=== PATIENT | female | born 1985 | race Two or more races ===

== ENCOUNTER 2023-07-09 06:47 | Emergency (ER) | payer OTHER ==
[~2023-07-09] VITALS: Ht 167.6 cm; Wt 130.0 kg
[~2023-07-09 06:47] MED LIST: ALBU8HFA4 IH; BECL8.7A5 IH
[2023-07-09 06:51] VITALS: TEMP 98.8
[2023-07-09] MEDS ORDERED: IPRATROPIUM BROMIDE 0.5 MG/2.5 ML NEB SOLUTION NEB ONE (07:00)
[2023-07-09] MEDS ORDERED: ALBUTEROL SULFATE 2.5 MG/0.5 ML NEB SOLUTION NEB ONE (07:00)
[2023-07-09 07:25] LABS: COVID AG,FIA SOURCE NASAL SWAB
[2023-07-09 07:29] VITALS: PULSE 97; RESP 20; O2SAT 93
[2023-07-09 07:44] VITALS: PULSE 98; RESP 20; O2SAT 95
[2023-07-09 08:01] LABS: SARS-COV2 (COVID) ANTIGEN,FIA Negative (Negative)
[2023-07-09 08:02] LABS: INFLUENZA TYPE A NEGATIVE FOR TYPE A (NEGATIVE); INFLUENZA TYPE B NEGATIVE FOR TYPE B (NEGATIVE)
[2023-07-09 09:24] VITALS: BP 126/81; PULSE 89; RESP 18
[2023-07-09] MEDS ORDERED: ALBUTEROL SULFATE HFA 90 MCG/PUFF 8 GM INHALER IH ONE (09:45)
[2023-07-09] MEDS ORDERED: AZIT250T9 PO (09:46)
[2023-07-09] MEDS ORDERED: BENZ-227 PO (09:46)
== END 2023-07-09 10:03 | disposition home or self-care (01) ==
LOC: EMS 06:47
DX: J18.9 Pneumonia, unspecified organism (principal); J45.901 Unspecified asthma with (acute) exacerbation; Z20.822 Contact with and (suspected) exposure to COVID-19
CPT/HCPCS: 99284; 71045; 87426; 87804; 94640; J3535; J7613

== ENCOUNTER 2024-03-07 11:31 | Emergency (ER) | payer OTHER ==
[~2024-03-07] VITALS: Ht 167.6 cm; Wt 97.7 kg
[~2024-03-07 11:31] MED LIST changes: -ALBU8HFA4 IH; -BECL8.7A5 IH; +BENZ-227 PO
[2024-03-07 11:38] VITALS: BP 146/79; PULSE 93; RESP 18; TEMP 98.7
[2024-03-07 11:50] LABS: COVID AG,FIA SOURCE NASAL SWAB
[2024-03-07 12:09] LABS: SARS-COV2 (COVID) ANTIGEN,FIA Negative (Negative)
[2024-03-07 12:10] LABS: INFLUENZA TYPE A NEGATIVE FOR TYPE A (NEGATIVE); INFLUENZA TYPE B NEGATIVE FOR TYPE B (NEGATIVE)
[2024-03-07] MEDS ORDERED: IBUP-1492 PO (12:11)
[2024-03-07] MEDS ORDERED: ACET-3385 PO (12:11)
[2024-03-07] MEDS ORDERED: AMOX-457 PO (12:11)
[2024-03-07] MEDS: AMOX TR/POT CLAV 875 MG/125 MG TABLET PO ONE (12:15)
[2024-03-07] MEDS: ACETAMINOPHEN 500 MG TABLET PO ONE (12:16)
== END 2024-03-07 12:27 | disposition home or self-care (01) ==
LOC: EMS 11:31
DX: H66.93 Otitis media, unspecified, bilateral (principal); R50.9 Fever, unspecified; J45.909 Unspecified asthma, uncomplicated; Z20.822 Contact with and (suspected) exposure to COVID-19
CPT/HCPCS: 87430; 87804; 99283